=== PATIENT | male | born 1955 ===

== ENCOUNTER 2021-01-04 13:18 | Outpatient (RCR) | payer BC, SELFPAY ==
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
--- NOTE | 2021-01-11 09:34 | PCPTNOTE ---
pt did not show for today's appt; called and left message with reminder for next appt time.
--- NOTE | 2021-01-18 11:29 | PCPTNOTE ---
Patient did not show up for scheduled appointment this date. Called and left message with family about Pt's missed appointment and reminded them of upcoming appointment on January. Informed them to please call if unable to make it. This was Pt's 2nd no-show.
--- NOTE | 2021-01-27 16:13 | PCPTNOTE ---
PHYSICAL THERAPY DISCHARGE 01-27-21 Attending Provider: Peter Viera DPM Patient:Sameer Buckley Date of :1955 Mr. Buckley has not returned for any further treatments since the PT evaluation on 01/04/2021, for the diagnosis of plantar fasciitis, therefore he will be discharged at this time. The goals were not assessed. Thank you for referring Sameer to [facility]. Please review, sign, date and return this discharge summary TONNY. I have been updated about the patient's current status and I agree with discharge from the above service at this time. Referring Physician Date
== END 2021-01-28 10:16 | disposition home or self-care (01) ==
LOC: ANHPT 13:18
DX: M72.2 Plantar fascial fibromatosis (principal)
CPT/HCPCS: 97161